=== PATIENT | female | born 1995 | race African-American/Black ===

== ENCOUNTER 2023-02-03 08:33 | Emergency (ER) | payer OTHER | END 2023-02-03 10:02 | disposition home or self-care (01) | LOC: ERS 08:33 | DX: T63.461A Toxic effect of venom of wasps, accidental (unintentional), initial encounter (principal) | CPT/HCPCS: 99282 ==

== ENCOUNTER 2023-10-25 22:31 | Emergency (ER) | payer OTHER | END 2023-10-26 01:00 | disposition home or self-care (01) | LOC: ERS 22:31 | DX: Z77.21 Contact with and (suspected) exposure to potentially hazardous body fluids (principal) | CPT/HCPCS: 99283 ==